=== PATIENT | male | born 2000 | race Caucasian/White ===

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

== ENCOUNTER 2024-07-20 16:20 | Emergency (ER) | payer MEDICAID ==
[~2024-07-20] VITALS: Ht 180.3 cm; Wt 67.0 kg
[2024-07-20 16:55] VITALS: BP 135/60; PULSE 97; RESP 16; TEMP 98.4; O2SAT 97
[2024-07-20] MEDS ORDERED: IBU600T PO (17:28)
== END 2024-07-20 17:50 | disposition home or self-care (01) ==
LOC: ER 16:20
DX: S62.340A Nondisplaced fracture of base of second metacarpal bone, right hand, initial encounter for closed fracture (principal); F15.90 Other stimulant use, unspecified, uncomplicated; W51.XXXA Accidental striking against or bumped into by another person, initial encounter; Y93.89 Activity, other specified; Y92.89 Other specified places as the place of occurrence of the external cause; Y99.8 Other external cause status
CPT/HCPCS: 29125; 73130

== ENCOUNTER 2025-09-11 16:16 | Emergency (ER) | payer MEDICAID ==
[~2025-09-11] VITALS: Ht 180.3 cm; Wt 58.1 kg
[~2025-09-11 16:16] MED LIST: IBU600T PO
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
[2025-09-11 17:15] LABS: Hematocrit 39.0 % (41.0-53.0); Hemoglobin 13.6 g/dL (13.5-17.5); Mean Corpuscular Hemoglobin 31.6 pg (28.0-32.0); Mean Corpuscular Volume 90.5 fL (80.0-100.0); Nucleated Red Blood Cells % 0.1 %
[2025-09-11] MEDS: TETANUS-DIPTH-ACEL PERTUSSIS 0.5ML SYR Tdap IM ONE (17:17)
[2025-09-11] MEDS: SODIUM CHLORIDE 0.9% 1,000 ML IV ONE ×2 (17:19→18:30)
[2025-09-11] MEDS: ceFAZolin 2 GM/D5W50ml 50 ML IV ONE (17:19)
[2025-09-11] MEDS: fentaNYL CITRATE 100 MCG/2 ML VL IV ONE ×2 (17:19→17:54)
[2025-09-11 17:25] VITALS: PULSE 77; RESP 13; O2SAT 98
[2025-09-11 17:37] LABS: Alanine Aminotransferase 24 U/L (7-40); Albumin 4.5 g/dL (3.2-4.8); Alkaline Phosphatase 59 U/L (46-116); Anion Gap 13 (5-15); BUN/Creatinine Ratio 7.1 (10.0-20.0); Calcium 9.8 mg/dL (8.7-10.4); Chloride 107 mmol/L (98-107); Creatine Kinase IFCC 118 U/L (46-171); Glucose 102 mg/dL (74-106); Sodium 140 mmol/L (136-145); Total Protein 7.0 g/dL (5.7-8.2)
[2025-09-11 17:38] LABS: Bilirubin, Total 0.5 mg/dL (0.2-1.0)
[2025-09-11 17:41] LABS: Blood Urea Nitrogen 7 mg/dL (9-23); Carbon Dioxide 20 mmol/L (20-31); Potassium 3.3 mmol/L (3.5-5.1)
[2025-09-11 17:48] LABS: Lactic Acid w/Reflex 2.8 mmol/L (0.4-2.0)
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
[2025-09-11 19:35] VITALS: PULSE 77; RESP 12; O2SAT 98
[2025-09-11 19:58] VITALS: BP 118/64; PULSE 87; RESP 12; TEMP 98.8; O2SAT 95
[2025-09-11] MEDS: KETOROLAC TROMETH 30 MG/ML 1ML VIAL IV ONE (20:21)
[2025-09-11] MEDS: HYDROcodone-ACET 5/325MG TAB PO ONE (20:21)
--- NOTE | 2025-09-11 20:53 | DVH ---
EXAM: XY L ELBOW 3 VIEW XRAY INDICATION: injury, fall TECHNIQUE:: 3 views of the left elbow COMPARISON: None FINDINGS/IMPRESSION: No radiographic evidence of an acute osseous abnormality. There is no acute fracture, osseous malalignment, or aggressive focal osseous lesion. Soft tissue swelling along the volar aspect of the proximal forearm.
[2025-09-11] MEDS ORDERED: CEPH500C PO (21:09)
[2025-09-11 21:20] LABS: Urine Protein, UAD Negative (Negative)
[2025-09-11 21:29] LABS: Amphetamine Screen, Urine Neg (NEGATIVE); Barbiturate Scree,Urine Neg (NEGATIVE); Benzodiazephine Screen, Urine Neg (NEGATIVE); Cannabinoid Screen, Urine Pos (NEGATIVE); Cocaine Screen, Urine Neg (NEGATIVE); Opiate Scree,Urine Neg (NEGATIVE); Phencyclidine Screen, Urine Neg (NEGATIVE)
[2025-09-11] MEDS ORDERED: ACET-1079 PO (21:37)
== END 2025-09-11 21:46 | disposition home or self-care (01) ==
LOC: ER 16:16
DX: S70.212A Abrasion, left hip, initial encounter (principal); S50.812A Abrasion of left forearm, initial encounter; R21 Rash and other nonspecific skin eruption; Z79.899 Other long term (current) drug therapy; W19.XXXA Unspecified fall, initial encounter; Y93.89 Activity, other specified; Y92.89 Other specified places as the place of occurrence of the external cause; Y99.8 Other external cause status
CPT/HCPCS: 36415; 70450; 71045; 71250; 72125; 73080; 74176; 80053; 80307; 81001; 82550; 83605; 84484; 85025; 90471; 90715; 96365; 96366; 96375; 96376; 99285; J0690; J1885; J3010; J7030